=== PATIENT | male | born 1960 | race Caucasian/White ===

== ENCOUNTER 2017-12-03 21:43 | Emergency (ER) | payer MEDICARE, OTHER ==
[~2017-12-03] VITALS: Ht 182.9 cm; Wt 93.0 kg
[~2017-12-03 21:43] MED LIST: AMLODIPINE BESY10 MG PO; ASPIR 8181 MG PO; GLIPIZIDE 10 MG10 MG PO; METFORMIN HCL500 MG PO; NERVE PAIN; OXYCONTIN20 M1 PO; OXYCONTIN80 M1 PO; SERTRALINE HCL50 MG PO; TRAZODONE HCL100 MG PO
[2017-12-03 21:47] VITALS: BP 131/77
[2017-12-03] MEDS ORDERED: LYRICA 75 MG CA75 MG PO (21:54)
[2017-12-03] MEDS ORDERED: OXYCONTIN80 M1 PO (22:14)
== END 2017-12-03 22:22 | disposition home or self-care (01) ==
LOC: M.ERS 21:43
DX: Z76.0 Encounter for issue of repeat prescription (principal); I10 Essential (primary) hypertension; M19.90 Unspecified osteoarthritis, unspecified site; Z88.8 Allergy status to other drugs, medicaments and biological substances

== ENCOUNTER 2019-01-11 22:19 | Emergency (ER) | payer MEDICARE, OTHER ==
[~2019-01-11] VITALS: Ht 182.9 cm; Wt 95.3 kg
[~2019-01-11 22:19] MED LIST changes: +LYRICA 75 MG CA75 MG PO
[2019-01-11 23:38] LABS: ABSOLUTE LYMPHOCYTES 1.3 thou/uL (0.8-5.3); ABSOLUTE MONOCYTES 0.5 thou/uL (0.0-1.2); ABSOLUTE NEUTROPHILS 6.8 thou/uL (1.6-8.1); BASOPHILS 0.2 %; EOSINOPHILS 0.4 %; HEMATOCRIT 39.3 % (42.0-52.0); HEMOGLOBIN 13.8 gm/dL (14.0-18.0); LYMPHOCYTES 15.1 %; MCH 30.1 pg (26.0-34.0); MCHC 35.1 g/dL (28.0-37.0); MCV 85.9 fL (80.0-100.0); MONOCYTES 5.7 %; MPV 7.7 fl. (7.2-11.1); NUCLEATED RBCS 0 /100WBC; PLATELET COUNT* 247 thou/uL (150-400); POLYS 78.6 %; RBC 4.58 mil/uL (4.50-6.00); RDW-CV 13.8 % (10.5-14.5); WBC 8.6 thou/uL (4.0-11.0)
[2019-01-11 23:39] LABS: CALCIUM 9.3 mg/dL (8.5-10.1); CREATININE 1.1 mg/dL (0.6-1.3); POTASSIUM 4.2 mmol/L (3.5-5.1)
[2019-01-11 23:43] LABS: ALBUMIN 4.1 g/dL (3.4-5.0); TOTAL BILIRUBIN 0.7 mg/dL (<0.1-1.0)
[2019-01-12 00:12] LABS: URINE BILIRUBIN NEGATIVE (Negative); URINE BLOOD TRACE (Negative); URINE CLARITY CLEAR; URINE COLOR YELLOW; URINE GLUCOSE-RANDOM TRACE (Negative); URINE KETONES NEGATIVE (Negative); URINE LEUKOCYTES-REFLEX NEGATIVE (Negative); URINE NITRITE-REFLEX NEGATIVE (Negative); URINE PROTEIN 1+ (Negative); URINE SPECIFIC GRAVITY <= 1.005 (1.005-1.030); URINE UROBILINOGEN 0.2 E.U./dl (0.2-1.0)
[2019-01-12 00:21] LABS: AMP/METHAMP Negative (Negative); BARBITURATES Negative (Negative); BENZODIAZEPINES Negative (Negative); COCAINE Negative (Negative); METHADONE Negative (Negative); OPIATES POSITIVE (Negative); PCP Negative (Negative); THC Negative (Negative)
[2019-01-12 00:30] VITALS: BP 170/94
[2019-01-12] MEDS ORDERED: OXYCONTIN10 M1 PO (00:34)
== END 2019-01-12 01:06 | disposition home or self-care (01) ==
LOC: M.ERS 22:19
PROVIDERS: Personal Emergency Response Attendant
DX: G89.29 Other chronic pain (principal); I10 Essential (primary) hypertension; F32.9 Major depressive disorder, single episode, unspecified; M19.90 Unspecified osteoarthritis, unspecified site; Z96.642 Presence of left artificial hip joint; Z88.8 Allergy status to other drugs, medicaments and biological substances

== ENCOUNTER 2019-05-30 20:16 | Emergency (ER) | payer MEDICARE, BC ==
[~2019-05-30] VITALS: Ht 182.9 cm; Wt 93.0 kg
[~2019-05-30 20:16] MED LIST changes: +OXYCONTIN10 M1 PO
[2019-05-30 20:48] LABS: ABSOLUTE EOSINOPHILS 0.1 thou/uL (0.0-0.7); ABSOLUTE MONOCYTES 0.5 thou/uL (0.0-1.2); ABSOLUTE NEUTROPHILS 4.9 thou/uL (1.6-8.1); BASOPHILS 0.5 %; EOSINOPHILS 1.9 %; HEMATOCRIT 39.2 % (42.0-52.0); HEMOGLOBIN 14.1 gm/dL (14.0-18.0); LYMPHOCYTES 26.2 %; MCH 30.6 pg (26.0-34.0); MCHC 35.9 g/dL (28.0-37.0); MCV 85.2 fL (80.0-100.0); MONOCYTES 6.4 %; MPV 7.6 fl. (7.2-11.1); NUCLEATED RBCS 0 /100WBC; PLATELET COUNT* 216 thou/uL (150-400); RDW-CV 13.5 % (10.5-14.5); WBC 7.6 thou/uL (4.0-11.0)
[2019-05-30 21:01] LABS: PROTIME 10.4 Seconds (9.20-11.50)
[2019-05-30 21:10] LABS: CALCIUM 9.5 mg/dL (8.5-10.1); CREATININE 1.2 mg/dL (0.6-1.3); POTASSIUM 5.4 mmol/L (3.5-5.1)
[2019-05-30 21:15] LABS: ALBUMIN 4.2 g/dL (3.4-5.0); MAGNESIUM 1.5 mg/dL (1.8-2.4); TOTAL BILIRUBIN 0.7 mg/dL (<0.1-1.0); TOTAL PROTEIN 8.1 g/dL (6.4-8.2)
[2019-05-31 00:43] VITALS: BP 106/47
--- NOTE | 2019-05-31 11:28 | EKG ---
[place] [address] ELECTROCARDIOGRAM REPORT Name: NENITATONONAZIA [id number] Admission: 05/30/19 Attend Phys: Discharge: 05/31/19 Date of : 64 Report #: [id number] THIS REPORT FOR: //name// [facility] ED Test Date: 2019-05-30 Test Time: 20:40:18 Pat Name: NZAIA MURRIETA Department: Room: Gender: M [employer]: [place] : 1960 Requested By: Ivanna Avalos Order Number: [id number] MD: Julio Cox Measurements Intervals [place] Rate: 86 P: 37 OR: 164 QRS: 1 QRSD: 91 T: 47 QT: 358 QTc: 429 Interpretive Statements Sinus rhythm poor r wave progression No previous ECG available for comparison Electronically Signed On 05-31-2019 11:28:11 CDT by Julio Cox [email or web address] <ELECTRONICALLY SIGNED> By: Julio Cox MD, [facility] 05/31/19 [id number] Julio Cox MD, FACC /EPI
== END 2019-05-31 00:43 | disposition home or self-care (01) ==
LOC: M.ERS 20:16
PROVIDERS: Emergency Medicine
DX: E87.5 Hyperkalemia (principal); I10 Essential (primary) hypertension; M19.90 Unspecified osteoarthritis, unspecified site; F32.9 Major depressive disorder, single episode, unspecified; Z96.642 Presence of left artificial hip joint; Z88.8 Allergy status to other drugs, medicaments and biological substances

== ENCOUNTER → 2019-07-24 | Emergency (ER) | payer MEDICARE, BC ==
[~2019-07-24] VITALS: Ht 182.9 cm; Wt 93.0 kg
[~2019-07-24] MED LIST changes: +OXYCODONE HCL10 MG PO
[2019-07-24 23:53] VITALS: BP 161/121
== END ==
LOC: M.ERS 23:23
DX: M79.671 Pain in right foot (principal); Z76.0 Encounter for issue of repeat prescription; I10 Essential (primary) hypertension; F32.9 Major depressive disorder, single episode, unspecified; M19.90 Unspecified osteoarthritis, unspecified site; Z98.890 Other specified postprocedural states; Z88.6 Allergy status to analgesic agent